=== PATIENT | male | born 2000 | race Caucasian/White ===

== ENCOUNTER 2022-07-13 19:57 | Emergency (ER) | payer OTHER ==
[~2022-07-13] VITALS: Ht 185.4 cm; Wt 104.2 kg
[2022-07-13 20:02] VITALS: BP 144/86
--- NOTE | 2022-07-13 20:06 | ED EENT ---
History of Present Illness General Stated Complaint: R EYE FOREIGN BODY History of Present Illness Date Seen by Provider: Jul 13, 2022 Time Seen by Provider: 20:06 Initial Comments 21-year-old male presents with piece of metal in his right eye. He is not sure exactly when he got it there today. He noticed it on the way home from work that his eye was hurting is very red. 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 Allergies and Home Medications Allergies Coded Allergies: No Known Drug Allergies (Unverified , 07/13/22) Patient Home Medication List Home Medication List Reviewed: Yes Review of Systems Review of Systems Constitutional: no symptoms reported Eyes: See HPI, Foreign Body Sensation, Inflammation, Photophobia Ears: No Symptoms Reported Nose: no symptoms reported Mouth: no symptoms reported Throat: no symptoms reported Respiratory: no symptoms reported Cardiovascular: no symptoms reported Gastrointestinal: no symptoms reported Physical Exam Vital Signs Vital Signs - First Documented 07/13/22 20:02 Temp 37.0 Pulse 76 Resp 16 B/P (MAP) 144/86 (105) Pulse Ox 96 O2 Delivery Room Air Height, Weight, BMI Height: '" Weight: lbs. oz. kg; BMI Method: General Appearance: WD/WN, no apparent distress Eyes: right eye foreign body (Small in bed piece of metal at approximately 3:00 on the outer edge of the iris in cornea) Cardiovascular: normal peripheral pulses, regular rate, rhythm Respiratory: no respiratory distress, no accessory muscle use Neurologic/Psychiatric: alert, normal mood/affect, oriented x 3 Skin: normal color, warm/dry Progress/Results/Core Measures Results/Orders My Orders Orders - TALA WICK DO Tetracaine 0.5% Ophth Monica Sdv (Tetracai (07/13/22 20:15) Fluorescein Strips ([id number]) (07/13/22 20:15) Medications Given in ED Current Medications Medications Dose Ordered Sig/Jarek Route Start Time Stop Time Status Last Admin Dose Admin Fluorescein Sodium 1 mg ONCE ONCE OP 07/13/22 20:15 07/13/22 20:17 DC 07/13/22 20:19 1 MG Tetracaine HCl 1 OR 2 DROPS INTO AFFEC... ONCE ONCE OP 07/13/22 20:15 07/13/22 20:17 DC 07/13/22 20:19 1 ML Vital Signs/I&O 1/12/23 20:02 Temp 37.0 Pulse 76 Resp 16 B/P (MAP) 144/86 (105) Pulse Ox 96 O2 Delivery Room Air Progress Progress Note : Progress Note Patient with embedded piece of metal in the cornea of his right eye. Attempted removal with both flushing and a cotton swab however it is too deep to be removed. Patient is not comfortable with any other modality and will would like to see an real estate valuer. Patient should follow-up with real estate valuer first thing in the morning for removal. Departure Impression Primary Impression: Foreign body of cornea Qualified Codes: T15.01XA - Foreign body in cornea, right eye, initial encounter Disposition: HOME, SELF-CARE Condition: Stable Departure-Patient Inst. Patient Instructions: Corneal Abrasion (DC) Add. Discharge Instructions: Please call Dr. Monet's office at [phone] or go there first thing in the morning when they open for evaluation TALA WICK DO Jul 13, 2022 20:06
[2022-07-13] MEDS ORDERED: TETRACAINE 0.5% OPHTH SOLN 4 ML BTL (SINGLE DOSE ONLY) OP ONE (20:15)
[2022-07-13] MEDS ORDERED: FLUORESCEIN (FLUOR-I-STRIPS) 1 MG STRP OP ONE (20:15)
== END 2022-07-13 20:42 | disposition home or self-care (01) ==
LOC: ER FS 19:59
DX: T15.01XA Foreign body in cornea, right eye, initial encounter (principal); Z28.310 Unvaccinated for COVID-19; W45.8XXA Other foreign body or object entering through skin, initial encounter
CPT/HCPCS: 99282